=== PATIENT | male | born 1975 | race Caucasian/White ===

== ENCOUNTER 2023-03-17 10:51 | Emergency (ER) | payer SELFPAY ==
[~2023-03-17] VITALS: Ht 175.3 cm; Wt 70.0 kg
[2023-03-17 10:53] VITALS: BP 131/83; PULSE 98; RESP 16; TEMP 98.8; O2SAT 98
== END 2023-03-17 15:57 | disposition left against medical advice (07) ==
LOC: ER 11:06
DX: R10.9 Unspecified abdominal pain (principal); Z53.21 Procedure and treatment not carried out due to patient leaving prior to being seen by health care provider
CPT/HCPCS: 99281; Z7610

== ENCOUNTER 2023-03-19 10:35 | Emergency (ER) | payer MEDICAID, MEDICARE ==
[~2023-03-19] VITALS: Ht 175.3 cm; Wt 100.0 kg
[2023-03-19 10:49] VITALS: O2SAT 99
[2023-03-19] MEDS ORDERED: MORPHINE SULFATE 4 MG/ML CPJ (NOT FOR IM USE) IV STA (11:13)
[2023-03-19] MEDS ORDERED: ONDANSETRON HCL 4MG/2ML INJ IV STA (11:13)
[2023-03-19 11:14] VITALS: TEMP 98
[2023-03-19 11:45] LABS: EOSINOPHILS % 3.7 % (0.0-5.0); HEMATOCRIT. 40.1 % (42.0-52.0); HEMOGLOBIN. 13.7 g/dL (14.0-18.0); LYMPHOCYTES % 26.4 % (20.0-50.0); MEAN CORPUSCULAR HEMOGLOBIN 31.6 pg (28.0-32.0); MEAN CORPUSCULAR HGB CONC 34.1 g/dL (31.0-37.0); MEAN CORPUSCULAR VOLUME 92.6 fL (80.0-94.0); MEAN PLATELET VOLUME 7.8 fl (7.4-10.4); MONOCYTES % 8.5 % (2.0-8.0); NEUTROPHILS % 60.4 % (40.0-76.0); PLATELET 238 x1000/uL (130-400); RED BLOOD CELL COUNT 4.33 mill/uL (4.7-6.1); RED CELL DISTRIBUTION WIDTH 14.1 % (11.6-14.6); WHITE BLOOD COUNT 4.8 x1000/uL (4.5-11.0)
[2023-03-19] MEDS ORDERED: TOPUD PO (11:58)
[2023-03-19 12:07] LABS: ALANINE AMINOTRANSFERASE 33 IU/L (10-49); ALBUMIN 3.7 g/dL (3.2-4.8); ASPARTATE AMINOTRANSFERASE 49 IU/L (<34); BILIRUBIN TOTAL 0.4 mg/dL (0.1-1.0); CALCIUM 8.7 mg/dL (8.7-10.4); CARBON DIOXIDE 25 mEq/L (21-32); CHLORIDE 110 mEq/L (98-107); CREATININE 0.9 mg/dL (0.6-1.3); GLUCOSE 84 mg/dL (70-105); POTASSIUM 4.1 mEq/L (3.5-5.1); PROTEIN TOTAL 6.3 g/dL (6.0-8.3); SODIUM 140 mEq/L (136-145); UREA NITROGEN BLOOD 24 mg/dL (9-23)
[2023-03-19 12:12] LABS: CLARITY URINE CLEAR (CLEAR); COLOR URINE YELLOW (YELLOW); GLUCOSE URINE NEGATIVE (NEGATIVE); KETONES URINE 1+ (NEGATIVE); LEUKOCYTE ESTERASE URINE NEGATIVE (NEGATIVE); NITRITE URINE NEGATIVE (NEGATIVE); OCCULT BLOOD URINE NEGATIVE (NEGATIVE); PH URINE 6.5 (4.5-8.0); PROTEIN URINE NEGATIVE (NEGATIVE); SPECIFIC GRAVITY URINE 1.034 (1.005-1.030)
[2023-03-19 12:48] VITALS: BP 132/80; PULSE 60; RESP 15
== END 2023-03-19 12:49 | disposition home or self-care (01) ==
LOC: ER 11:42
DX: K40.90 Unilateral inguinal hernia, without obstruction or gangrene, not specified as recurrent (principal); I10 Essential (primary) hypertension
CPT/HCPCS: 80053; 81003; 83690; 85025; 85610; 36415; 96374; 96375; 99284; J2405; J2270; Z7610 ×4